=== PATIENT | female | born 1975 | race Caucasian/White ===

== ENCOUNTER 2017-01-05 08:15 | Emergency (ER) | payer OTHER ==
[~2017-01-05] VITALS: Ht 162.6 cm; Wt 115.0 kg
[2017-01-05 08:18] VITALS: BP 189/94; PULSE 72; RESP 18; TEMP 97.6; O2SAT 99
[2017-01-05] MEDS ORDERED: SYNT175T PO (08:35)
[2017-01-05] MEDS ORDERED: PREV30CA11 PO (08:35)
[2017-01-05] MEDS ORDERED: IBUP400T20 PO (08:35)
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
[2017-01-05] MEDS ORDERED: CYCL5TAB PO (08:55)
== END 2017-01-05 09:02 | disposition home or self-care (01) ==
LOC: PHED 08:15
DX: M62.838 Other muscle spasm (principal); S13.4XXA Sprain of ligaments of cervical spine, initial encounter; V49.49XA Driver injured in collision with other motor vehicles in traffic accident, initial encounter; Y92.410 Unspecified street and highway as the place of occurrence of the external cause
CPT/HCPCS: 99283